=== PATIENT | female | born 2005 | race Hispanic/Latino ===

== ENCOUNTER 2025-01-04 11:39 | Emergency (ER) | payer SELFPAY ==
[2025-01-04 12:15] LABS: Pregnancy Test - Urine (BHCG) Negative (Negative); Pregu Control Background? CLEAR/WHITE (CLR/WHITE); Pregu Control Bar Appear? YES (CONTROL BAR)
[2025-01-04 12:17] LABS: Bacteria/HPF None Seen HPF (None Seen); CAUTI Indications for Culture Dysuria,urgency,freq; Glucose, Urine (Dipstick) Normal (Negative); Leukocyte Negative Leu/uL (Negative); Protein, Urine (Dipstick) Negative (Neg-Trace); RBC/HPF Greater than 50 HPF (0-3); Specific Gravity, Urine 1.019 (1.002-1.036); WBC/HPF 0-3 HPF (0-3)
[2025-01-04 12:23] LABS: Urine Culture Reflex No No
[2025-01-04] MEDS ORDERED: Ketorolac Tromethamine 30 MG (1 mL) VIAL ONE (12:46)
[2025-01-04] MEDS ORDERED: Acetaminophen 325 MG TAB ONE (12:46)
== END 2025-01-04 14:20 | disposition home or self-care (01) ==
LOC: ERS 11:39
DX: R30.0 Dysuria (principal)
CPT/HCPCS: 81001; 81025; 87480; 87510; 87660; 96372; 99283; J1885